=== PATIENT | female | born 1960 | race Caucasian/White ===

== ENCOUNTER 2022-10-16 18:39 | Outpatient (REF) | payer OTHER, SELFPAY ==
[2022-10-16 20:03] LABS: Anion Gap 9.4 mmol/L (3-11); BUN 14 mg/dL (7-18); CO2 27.6 mmol/L (21.0-32.0); CREATININE 0.8 mg/dL (0.55-1.02); Calcium 9.3 mg/dL (8.5-10.1); Chloride 105 mmol/L (98-107); Glucose 100 mg/dL (74-106); Potassium 4.4 mmol/L (3.5-5.1); Sodium 142 mmol/L (136-145); Uric Acid 3.7 mg/dL (2.6-6.0)
== END 2022-10-16 18:40 | disposition home or self-care (01) ==
LOC: NCHCN 18:39
PROVIDERS: Visit Provider Physician Assistant
DX: M25.571 Pain in right ankle and joints of right foot (principal)
CPT/HCPCS: 80048; 84550

== ENCOUNTER 2024-06-02 09:06 | Outpatient (REF) | payer OTHER, SELFPAY ==
[2024-06-02 19:44] LABS: Hemoglobin A1C 5.4 % (<5.7)
[2024-06-02 19:51] LABS: ALT 15 U/L (14-59); AST 31 U/L (15-37); Albumin 3.9 g/dL (3.4-5.0); Alkaline Phosphatase 101 U/L (46-116); Anion Gap 7.1 mmol/L (3-11); BUN 13 mg/dL (7-18); Bilirubin, Total 0.85 mg/dL (0.2-1.0); CO2 27.9 mmol/L (21.0-32.0); CREATININE 0.8 mg/dL (0.55-1.02); Calcium 9.1 mg/dL (8.5-10.1); Calculated LDL 88 mg/dL (<100); Chloride 108 mmol/L (98-107); Cholesterol 174 mg/dL (<200); Estimated GFR 83.78 (mL/min/1.73m2); Glucose 87 mg/dL (74-106); HDL Cholesterol 75 mg/dL (40-60); Potassium 4.3 mmol/L (3.5-5.1); Sodium 143 mmol/L (136-145); Total Protein 7.1 g/dL (6.4-8.2); Triglyceride 58 mg/dL (<150)
== END 2024-06-02 09:07 | disposition home or self-care (01) ==
LOC: NCHCN 09:06
PROVIDERS: Visit Provider Nurse Practitioner Family
DX: Z13.220 Encounter for screening for lipoid disorders (principal); Z13.1 Encounter for screening for diabetes mellitus
CPT/HCPCS: 80053; 80061; 83036

== ENCOUNTER 2025-02-21 02:30 | Outpatient (CLI) | payer OTHER, SELFPAY ==
--- NOTE | 2025-02-21 | DI.CT_ITS ---
Exam(s) CT ABDOMEN PELVIS W EXAM: CT ABDOMEN PELVIS W CLINICAL HISTORY: Lower abd pain, R10.30 TECHNIQUE: Imaging Protocol: Axial computed tomography images with coronal and sagittal reformatted images were created and reviewed. CONTRAST MATERIAL: Intravenous: Omnipaque 350 Contrast volume:75 mL Oral: Yes COMPARISON: No exams were available for comparison FINDINGS: ABDOMEN: Lung Bases: No acute abnormality. Liver: Normal density. There are few small hepatic cysts. No suspicious hepatic masses are seen. Portal, Superior Mesenteric, and Splenic Veins: Unremarkable. Gallbladder and Biliary Tract: No radiodense calculus or dilation. Pancreas: Normal density, no abnormal calcifications or inflammatory process. Spleen: Normal. Adrenals: No masses seen. Kidneys: Normal size, contour and axis. No radiodense stones or obstructive uropathy. There is a 6.9 x 6.8 cm simple cyst in the superior pole of the left kidney. No follow-up is recommended. No suspicious renal masses are present. Abdominal Aorta: Abdominal portion non-dilated. Bowel: No obstruction or bowel wall thickening. Appendix is unremarkable. Peritoneal Cavity: No ascites, collection or mesenteric inflammatory response. No free air. Lymph Nodes: Within normal limits. Bones: Within normal limits for the patient's age. Soft Tissues: There is a small fat containing umbilical hernia. PELVIS: Bladder: Symmetric distention, no gross wall thickening. Reproductive Organs: Status post hysterectomy. There is a 3.1 x 2.5 cm left adnexal cyst which is likely ovarian in origin. Lymph Nodes: Within normal limits. Bones: Within normal limits for the patient's age. IMPRESSION: 1. No acute abdominal or pelvic process. 2. 6.9 x 6.8 cm simple left renal cyst. No follow-up is recommended. 3. Small fat containing umbilical hernia. 4. 3.1 x 2.5 cm left adnexal cyst which is likely ovarian in origin. If further imaging is warranted, pelvic ultrasound may be obtained. RADIATION DOSE DELIVERED: 670.48mGy.cm Total DLP DATA REPOSITORY: All CT scans at this facility are submitted to the National Radiology Data Registry (NRDR) Dose Index Registry (DIR) with the [employer] ([employer]). RADIATION OPTIMIZATION: All CT scans at this facility use at least one of these dose optimization techniques: automated exposure control; mA and/or kV adjustment per patient size (includes targeted exams where dose is matched to clinical indication); or iterative reconstruction.
[2025-02-21] MEDS: Barium Sulfate 2% W/V-Creamy Vanilla Smoothie 450 ML BTL PO (08:34)
[2025-02-21] MEDS: Barium Sulfate 2% W/V-Berry Smoothie 450 ML BTL PO (08:35)
[2025-02-21 09:44] LABS: Estimated GFR 83.26 (mL/min/1.73m2)
[2025-02-21] MEDS: Normal Saline - Diluent 50 ML VIAL IJ (11:17)
[2025-02-21] MEDS: Omnipaque 350 MG/ML 500 ML BTL-Imaging package 75 ML IJ (11:18)
== END 2025-02-21 02:50 ==
PROVIDERS: Visit Provider Nurse Practitioner Family
DX: R10.30 Lower abdominal pain, unspecified (principal)
CPT/HCPCS: 74177; 82565

== ENCOUNTER 2025-06-20 16:34 | Outpatient (REF) | payer OTHER, SELFPAY ==
[2025-06-20 19:24] LABS: HCT 39.7 % (36.0-46.0); HGB 13.1 g/dL (11.2-15.7); MCH 27.5 pg (27.0-33.0); MCHC 33.0 % (32.0-36.0); MCV 83 fL (80-95); MPV 10.7 fL (8.0-11.0); Platelet Count 258 10^3/uL (130-400); RBC 4.76 10^6/uL (3.93-5.22); RDW 11.9 % (11.7-14.6); RDW-SD 36.4 fL; WBC 7.74 10^3/uL (4.4-10.8)
[2025-06-20 19:33] LABS: RBC 0-2 HPF (0-2); WBC Negative HPF (0-5)
[2025-06-20 19:34] LABS: C & S Indicated? No
[2025-06-20 19:47] LABS: ALT 13 U/L (14-59); AST 21 U/L (15-37); Albumin 4.0 g/dL (3.4-5.0); Alkaline Phosphatase 104 U/L (46-116); Anion Gap 9.4 mmol/L (3-11); BUN 14 mg/dL (7-18); Bilirubin, Total 0.5 mg/dL (0.2-1.0); CO2 27.6 mmol/L (21.0-32.0); Calcium 9.1 mg/dL (8.5-10.1); Chloride 103 mmol/L (98-107); Cholesterol 180 mg/dL (<200); Glucose 91 mg/dL (74-106); HDL Cholesterol 67 mg/dL (>or=50); Potassium 4.0 mmol/L (3.5-5.1); Sodium 140 mmol/L (136-145); TSH (W/Ref FT4) 2.07 uIU/mL (0.36-3.74); Total Protein 7.5 g/dL (6.4-8.2)
== END 2025-06-20 16:35 | disposition home or self-care (01) ==
LOC: NCHCN 16:34
PROVIDERS: Visit Provider Nurse Practitioner Family
DX: Z01.419 Encounter for gynecological examination (general) (routine) without abnormal findings (principal); Z00.00 Encounter for general adult medical examination without abnormal findings
CPT/HCPCS: 80053; 80061; 85027; 81015; 84443